=== PATIENT | male | born 1985 ===

== ENCOUNTER → 2021-10-11 15:59 | Outpatient (CLI) | payer BC, SELFPAY ==
--- NOTE | ~2021-10-11 | US_ITS ---
US renal BI DATE: 10/11/2021 16:24 INDICATION: Dysuria TECHNIQUE: Real-time imaging of kidneys and urinary bladder COMPARISON: None FINDINGS: Right kidney measures approximately 11.3 cm length, left kidney 11.7 cm. No renal mass lesi on or hydronephrosis. The urinary bladder is unremarkable. IMPRESSION: No significant abnormality Reviewed, dictated and finalized at [facility]. Reviewed, dictated and finalized at [facility]. IMPRESSION: No significant abnormality
== END ==
DX: R30.0 Dysuria (principal)
CPT/HCPCS: 76775